=== PATIENT | female | born 1955 | race African-American/Black ===

== ENCOUNTER 2016-11-19 18:08 | Emergency (ER) | payer BC ==
[~2016-11-19] VITALS: Ht 162.6 cm; Wt 87.0 kg
[2016-11-20] MEDS ORDERED: IBUPROFEN 600MG TABLET PO ONE (00:15)
[2016-11-20 01:35] VITALS: BP 144/77
== END 2016-11-20 02:30 | disposition home or self-care (01) ==
LOC: ER 23:32
DX: S83.91XA Sprain of unspecified site of right knee, initial encounter (principal); I10 Essential (primary) hypertension; Z85.3 Personal history of malignant neoplasm of breast; Z98.890 Other specified postprocedural states; Z88.6 Allergy status to analgesic agent; X58.XXXA Exposure to other specified factors, initial encounter; Y93.89 Activity, other specified; Y99.8 Other external cause status; Y92.89 Other specified places as the place of occurrence of the external cause
CPT/HCPCS: 73562; 99284

== ENCOUNTER 2017-08-27 14:30 | Emergency (ER) | payer BC ==
[~2017-08-27] VITALS: Ht 162.6 cm; Wt 88.0 kg
[2017-08-27 19:30] VITALS: BP 165/89
== END 2017-08-27 19:45 | disposition home or self-care (01) ==
LOC: ER 14:30
DX: S92.355A Nondisplaced fracture of fifth metatarsal bone, left foot, initial encounter for closed fracture (principal); I10 Essential (primary) hypertension; Z85.3 Personal history of malignant neoplasm of breast; Z88.5 Allergy status to narcotic agent; Z96.649 Presence of unspecified artificial hip joint; W10.8XXA Fall (on) (from) other stairs and steps, initial encounter; Y93.89 Activity, other specified; Y92.018 Other place in single-family (private) house as the place of occurrence of the external cause
CPT/HCPCS: 73630; 99284; Z7610

== ENCOUNTER 2018-07-12 19:24 | Emergency (ER) | payer BC, MEDICAID ==
[~2018-07-12] VITALS: Ht 162.6 cm; Wt 91.0 kg
[2018-07-13 03:08] VITALS: BP 148/88
== END 2018-07-13 03:11 | disposition home or self-care (01) ==
LOC: ER 19:24
DX: M25.532 Pain in left wrist (principal); W01.0XXA Fall on same level from slipping, tripping and stumbling without subsequent striking against object, initial encounter; Y93.89 Activity, other specified; Y92.89 Other specified places as the place of occurrence of the external cause; Y99.8 Other external cause status; Z96.649 Presence of unspecified artificial hip joint; Z88.5 Allergy status to narcotic agent; Z88.6 Allergy status to analgesic agent
CPT/HCPCS: 29125; 73110; 73130; 93005; 99283

== ENCOUNTER 2019-05-24 11:14 | Emergency (ER) | payer MEDICAID ==
[~2019-05-24] VITALS: Ht 162.6 cm; Wt 95.5 kg
[2019-05-24] MEDS ORDERED: IRBE1TAB31 PO (13:27)
[2019-05-24] MEDS ORDERED: IBUPROFEN 800MG TABLET PO ONE (14:15)
[2019-05-24 15:24] VITALS: BP 143/89
== END 2019-05-24 15:27 | disposition home or self-care (01) ==
LOC: ER 11:14
DX: M79.641 Pain in right hand (principal); I10 Essential (primary) hypertension; Z96.649 Presence of unspecified artificial hip joint; Z88.5 Allergy status to narcotic agent; Z88.6 Allergy status to analgesic agent
CPT/HCPCS: 73130; 99283